=== PATIENT | male | born 1955 | race Caucasian/White ===

== ENCOUNTER 2024-01-26 14:43 | Emergency (ER) | payer OTHER, MEDICARE ==
[2024-01-26 15:11] VITALS: BMI 24.0
[2024-01-26 15:23] LABS: INR 1.06 (0.83-1.09); PROTHROMBIN TIME (PATIENT) 12.1 SEC (9.7-13.0)
[2024-01-26 15:26] LABS: ACTIVATED PTT 28.4 SECONDS (25.2-36.5)
[2024-01-26 15:27] LABS: BILIRUBIN,TOTAL 0.9 mg/dl (0.2-1); CREATININE 2.6 mg/dl (0.6-1.3); POTASSIUM 2.9 mmol/L (3.5-5.1); TOT PROT 7.1 g/dl (6.4-8.2)
[2024-01-26 15:28] LABS: HEMATOCRIT 48.8 % (35.4-49); HEMOGLOBIN 15.3 G/dL (11.7-16.9); MCH 27.8 pg (25.7-33.7); MCHC 31.4 g/dl (32.0-35.9); MEAN CELL VOLUME 88.5 fl (80-96); MEAN PLT VOLUME 8.2 fl (7.5-11.1); PLATELET COUNT 554.8 10^3/uL (134-434); RBC 5.51 10^6/uL (4.00-5.60); RDW 15.5 % (11.9-15.9); WHITE BLOOD COUNT 26.7 10^3/uL (4.0-10.8)
[2024-01-26] MEDS ORDERED: LIDOCAINE HCL 2% (20ML MULTI-DOSE VIAL) ONE ×2 (15:39→18:11)
[2024-01-26 15:45] LABS: PLATELET ESTIMATE SLT INCREASE
[2024-01-26 16:41] LABS: VENOUS BASE EXCESS -1.5 mmol/L (-2-2); VENOUS O2 SATURATION 63.7 % (70-80); VENOUS PCO2 48.9 mmHg (38-52); VENOUS PH 7.328 (7.310-7.410)
[2024-01-26] MEDS: LIDOCAINE HCL 2% (50ML VIAL) SQ ONE (16:52)
[2024-01-26] MEDS ORDERED: POTASSIUM CHLORIDE ORAL LIQUID 20 MEQ/15 ML ONE (17:09)
[2024-01-26] MEDS ORDERED: PIPERACILLIN/TAZOBACTAM 4.5 GM VIAL IVPB ONE (17:09)
[2024-01-26] MEDS: POTASSIUM CHLORIDE ORAL LIQUID 20 MEQ/15 ML PO ONE (17:15)
[2024-01-26] MEDS: PIPERACILLIN/TAZOB 4.5 GM 4.5 GM in DEXTROSE 5%-WATER 100 ML IVPB ONE (17:16)
[2024-01-26 18:03] LABS: MAGNESIUM 1.8 mg/dL (1.8-2.4)
[2024-01-26] MEDS: morphine CARPU-JECT 2 MG/1 ML DISP.SYRIN IVPUSH ONE (18:43)
[2024-01-26] MEDS: VANCOMYCIN HCL 1,500 MG in DEXTROSE 5%-WATER - 500 ML IVPB ONE (18:44)
[2024-01-26] MEDS: SODIUM CHLORIDE 0.9% 500 ML INFUS.BAG IV ONE (20:59)
[2024-01-26] MEDS ORDERED: ACETAMINOPHEN INJECTION 100 ML IVPB ONE (21:20)
[2024-01-26] MEDS: ACETAMINOPHEN 1000 MG/100 ML BAG IVPB ONE (21:23)
[2024-01-27 02:29] VITALS: PULSE 82
[2024-01-27 02:32] VITALS: BP 96/57; RESP 20; TEMP 98.1
== END 2024-01-26 22:10 | disposition short-term general hospital (02) ==
LOC: FER 14:43 → UNDOADMIN 17:17 → FM/S 17:17 → UNDODISIN 22:10 → FER 22:10
PROC: 0W983ZZ Drainage of Chest Wall, Percutaneous Approach (ICD-10-PCS; principal; 2024-01-26)
PROC: 3E03329 Introduction of Other Anti-infective into Peripheral Vein, Percutaneous Approach (ICD-10-PCS; 2024-01-26)
PROC: 3E03329 Introduction of Other Anti-infective into Peripheral Vein, Percutaneous Approach (ICD-10-PCS; 2024-01-26)
PROC: 3E03329 Introduction of Other Anti-infective into Peripheral Vein, Percutaneous Approach (ICD-10-PCS; 2024-01-26)
PROC: 3E033NZ Introduction of Analgesics, Hypnotics, Sedatives into Peripheral Vein, Percutaneous Approach (ICD-10-PCS; 2024-01-26)
PROC: 3E033NZ Introduction of Analgesics, Hypnotics, Sedatives into Peripheral Vein, Percutaneous Approach (ICD-10-PCS; 2024-01-26)
DX: J18.9 Pneumonia, unspecified organism (principal); J90 Pleural effusion, not elsewhere classified; E87.6 Hypokalemia; R79.89 Other specified abnormal findings of blood chemistry; R09.02 Hypoxemia; R05.9 Cough, unspecified; Z20.822 Contact with and (suspected) exposure to COVID-19
CPT/HCPCS: 0241U-QW; 36415; 71045-TC-FY; 80053; 82803; 83735; 84484; 85027; 85610; 85730; 86850; 86900; 86901; 93005; 99285-25; J0131